=== PATIENT | female | born 1990 | race Caucasian/White ===

== ENCOUNTER 2020-11-09 20:27 | Emergency (ER) | payer MEDICAID ==
[~2020-11-09] VITALS: Ht 162.6 cm; Wt 68.2 kg
[2020-11-09 21:22] LABS: BASOPHILS % (AUTO) 0.4 % (0-1); EOSINOPHILS % (AUTO) 0.3 % (0-6); HEMATOCRIT 33.6 % (35.0-45.0); HEMOGLOBIN 11.1 g/dl (12.0-16.0); LYMPHOCYTES # (AUTO) 0.8 X10'3 (1.1-4.8); LYMPHOCYTES % (AUTO) 7.5 % (21-51); MEAN CORPUSCULAR HEMOGLOBIN 25.5 PG (27.0-31.0); MEAN CORPUSCULAR HGB CONC 33.1 g/dL (33.0-36.5); MEAN CORPUSCULAR VOLUME 77.1 FL (78-98); MONOCYTES # (AUTO) 0.5 X10'3 (0-0.9); MONOCYTES % (AUTO) 4.5 % (2-12); NEUTROPHILS # (AUTO) 9.3 X10'3 (1.8-7.7); NEUTROPHILS % (AUTO) 87.3 % (42-75); PLATELET COUNT 213 X10'3 (140-440); RED BLOOD COUNT 4.36 X10'6 (4.20-5.60); RED CELL DISTRIBUTION WIDTH 15.2 % (11.5-14.5); WHITE BLOOD COUNT 10.6 X10'3 (4.5-11.0)
--- NOTE | 2020-11-09 21:34 | NUR ---
U/A SENT TO LAB
[2020-11-09 21:37] LABS: ALANINE AMINOTRANSFERASE 15 U/L (12-78); ALBUMIN 3.8 G/DL (3.4-5.0); ALBUMIN/GLOBULIN RATIO 1.1 (1.1-1.5); ALKALINE PHOSPHATASE 40 IU/L (46-116); ANION GAP 8 (8-16); ASPARTATE AMINO TRANSFERASE 15 U/L (10-37); BILIRUBIN,TOTAL 0.3 MG/DL (0.1-1.0); BLOOD UREA NITROGEN 13 MG/DL (7-18); BUN/CREATININE RATIO 17.6 (6.6-38.0); CALCIUM 8.8 MG/DL (8.5-10.1); CHLORIDE 104 MMOL/L (99-107); CREATININE 0.74 MG/DL (0.40-0.90); GLUCOSE 133 MG/DL (70-104); LIPASE 85 U/L (73-393); POTASSIUM 3.3 MMOL/L (3.5-5.1); SODIUM 138 MMOL/L (135-145); TOTAL CARBON DIOXIDE 26.1 MMOL/L (24-32); TOTAL PROTEIN 7.4 G/DL (6.4-8.2); eGFR > 90 ML/MIN
[2020-11-09 21:44] LABS: URINE HCG NEGATIVE (NEG)
[2020-11-09] MEDS ORDERED: ondansetron/PF 4mg/2ml inj IV ONE (21:55)
[2020-11-09] MEDS ORDERED: normal saline 1000ML IV soln IVB ONE ×2 (21:55→23:50)
[2020-11-09] MEDS ORDERED: ketorolac trometh. 30mg/ml inj. IV ONE (21:55)
[2020-11-09 22:07] LABS: CLARITY,URINE CLEAR (Clear); COLOR,URINE YELLOW (Yellow); GLUCOSE, URINE NEGATIVE (Neg); KETONES,URINE NEGATIVE (Neg); LEUKOCYTE ESTERASE ,URINE NEGATIVE (Neg); NITRITES, URINE NEGATIVE (Neg); OCCULT BLOOD,URINE NEGATIVE (Neg); PH,URINE 6.5 (4.8-8.0); PROTEIN,URINE NEGATIVE (Neg); UROBILINOGEN,URINE 0.2 E.U/dL (0.2-1.0)
[2020-11-09 22:12] LABS: UA COLLECTION TYPE CLN CATCH MIDSTREAM
--- NOTE | 2020-11-09 23:40 | NUR ---
ultrasound at bedside
--- NOTE | 2020-11-09 23:52 | NUR ---
US at BS and pt got up to go to the BR and became lightheaded and nearly passed out, placed into a chair, she was ok then. To BR via w/c with BF. Pt doing better now. PA made aware, he ordered more IVF.
[2020-11-10] MEDS ORDERED: ONDA4TAB6 PO (00:04)
[2020-11-10] MEDS ORDERED: HYDR-3965 PO (00:04)
[2020-11-10] MEDS ORDERED: NAPR-56 PO (00:04)
[2020-11-10] MEDS ORDERED: HYDROcodone/acetaminophen 5mg/325mg tablet PO ONE (00:05)
[2020-11-10 01:10] VITALS: BP 88/54
== END 2020-11-10 01:12 | disposition home or self-care (01) ==
LOC: ER 20:29
DX: N83.201 Unspecified ovarian cyst, right side (principal); R10.2 Pelvic and perineal pain; R10.31 Right lower quadrant pain; R11.0 Nausea; M54.2 Cervicalgia; Z79.899 Other long term (current) drug therapy
CPT/HCPCS: 36415; 76830; 80053; 81003; 81025; 83690; 85025; 93976; 96374; 96375; 99284; J1885; J2405; J7030